=== PATIENT | female | born 2000 | race Asian ===

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

== ENCOUNTER 2021-01-20 22:37 | Outpatient (CLI) | payer BC, OTHER ==
[2021-01-20 23:37] VITALS: BP 135/71; PULSE 85; RESP 16; TEMP 97.1
--- NOTE | 2021-01-24 07:26 | P.MSEPDOC ---
Presenting Problems - Arrival Data Date of Arrival on Unit: 01/20/21 Time of Arrival on Unit: 22:37 Mode of Transport: Ambulatory - Complaint OB-Reason for Admission/Chief Complaint: Pain Comment: Left and right sided lower abdominal pain. Pt rates pain 4-5 on scale of 0-10 Medical History - Information : 2 Para: 1 Term: 1 : 0 Abortions: Spontaneous or Elective: 0 Number of Living Children: 1 - Gestational Age Gestational Age by LINDA (wks/days): 26 Weeks and 0 Days - History Complications: Prior Review of Systems - Review of Systems Constitutional: No problems Breast: No problems ENT: No problems Cardiovascular: No problems Respiratory: No problems Gastrointestinal: No problems Genitourinary: No problems Musculoskeletal: No problems Neurological: No problems Skin: No problems Vital Signs - Temperature Temperature: 97.1 F Temperature Source: Temporal Artery Scan - Pulse Right Brachial Pulse Rate: 85 Pulse Assessment Method: Automatic Cuff - Respirations Respiratory Rate: 16 Oxygen Delivery Method: Room Air O2 Sat by Pulse Oximetry: 99 - Blood Pressure Right Arm Blood Pressure: 135/71 Blood Pressure Mean: 92 Blood Pressure Source: Automatic Cuff Medical Screen Scoring - Assessment - Baby A Baseline FHR: 145 Physician Notification - Physician Notified Physician Notified Date: 01/20/21 Physician Notified Time: 23:15 Physician: Larisa Nunn New Order Received: Yes - Notification Comment Comment: Dr. Nunn given report on pt c/o. VS WNL. Pt rating pain 4-5 on pain scale. Reactive NST. No contractions noted per monitor. Orders received to d/c pt to home. Maternal Triage Index - Maternal Triage Index Presenting for scheduled procedure w/no complaint: No - Stat/Priority 1 Stat Priority 1: No - Urgent/Priority 2 Urgent Priority 2: No - Prompt/Priority 3 Prompt Priority 3: No - Non-Urgent/Priority 4 Non-Urgent Priority 4: Yes Criteria Met for Priority 4: Left and right sided abdominal pain. Disposition - Disposition OB Disposition: Discharge to home Discharge Date: 01/20/21 Discharge Time: 23:20 I agree with the RN Medical Screening Exam: Yes Case reviewed; plan agreed upon as documented in EMR&OBIX.: Yes Diagnosis: LOW BACK PAIN
== END 2021-01-20 23:20 | disposition home or self-care (01) ==
LOC: FBPOP 22:37
PROVIDERS: ATTEND Obstetrics & Gynecology
DX: O26.892 Other specified pregnancy related conditions, second trimester (principal); Z3A.26 26 weeks gestation of pregnancy
CPT/HCPCS: 59025; 99213

== ENCOUNTER 2021-02-04 14:48 | Outpatient (CLI) | payer BC, OTHER ==
[2021-02-04 15:39] VITALS: BP 124/59; PULSE 89; RESP 18; TEMP 98
--- NOTE | 2021-02-08 07:18 | P.MSEPDOC ---
Presenting Problems - Arrival Data Date of Arrival on Unit: 02/04/21 Time of Arrival on Unit: 14:48 Mode of Transport: Ambulatory - Complaint OB-Reason for Admission/Chief Complaint: Pain Comment: 11/30 cramping and generalized back pain began this morning. Medical History - Information : 2 Para: 1 Term: 0 : 1 Abortions: Spontaneous or Elective: 0 Number of Living Children: 1 - Gestational Age Gestational Age by LINDA (wks/days): 28 Weeks and 1 Days Review of Systems - Review of Systems Constitutional: No problems Breast: No problems ENT: No problems Cardiovascular: No problems Respiratory: No problems Gastrointestinal: No problems Genitourinary: No problems Musculoskeletal: No problems Neurological: No problems Skin: No problems Vital Signs - Temperature Temperature: 98.0 F Temperature Source: Axillary - Pulse Right Pulse Oximetery Pulse Rate: 89 Pulse Assessment Method: Pulse Oximetry - Respirations Respiratory Rate: 18 Oxygen Delivery Method: Room Air O2 Sat by Pulse Oximetry: 98 - Blood Pressure Right Arm Blood Pressure: 124/59 Blood Pressure Mean: 80 Blood Pressure Source: Automatic Cuff Medical Screen Scoring - Assessment - Baby A Baseline FHR: 140 Heart Rate - NICHD Category: Category I (Normal) NST: Reactive Physician Notification - Physician Notified Physician Notified Date: 02/04/21 Physician Notified Time: 15:16 Physician: Larisa Nunn New Order Received: Yes - Notification Comment Comment: d/c with instructions to increase fluids and rest and f/u if sx worsen. Maternal Triage Index - Maternal Triage Index Presenting for scheduled procedure w/no complaint: No - Stat/Priority 1 Stat Priority 1: No - Urgent/Priority 2 Urgent Priority 2: No - Prompt/Priority 3 Prompt Priority 3: No - Non-Urgent/Priority 4 Non-Urgent Priority 4: Yes Criteria Met for Priority 4: cramping and generalized back pain Disposition - Disposition OB Disposition: Discharge to home Discharge Date: 02/04/21 Discharge Time: 15:30 I agree with the RN Medical Screening Exam: Yes Case reviewed; plan agreed upon as documented in EMR&OBIX.: Yes Diagnosis: LOW BACK PAIN
== END 2021-02-04 15:30 | disposition home or self-care (01) ==
LOC: FBPOP 14:48
PROVIDERS: ATTEND Obstetrics & Gynecology
DX: O26.893 Other specified pregnancy related conditions, third trimester (principal); M54.9 Dorsalgia, unspecified; Z3A.28 28 weeks gestation of pregnancy
CPT/HCPCS: 59025; 99213

== ENCOUNTER 2021-02-21 22:14 | Outpatient (CLI) | payer BC, OTHER ==
[2021-02-21 23:13] LABS: Amorphous Sediment,Urine Rare /hpf; Appearance,Urine Cloudy (Clear); Bilirubin,Urine Negative (Negative); Blood,Urine Negative (Negative); Color,Urine Yellow; Glucose,Urine (UA) Negative (Negative); Ketones,Urine Negative (Negative); Leukocyte Esterase,Urine Negative (Negative); Mucus,Urine Rare /hpf; Nitrite,Urine Negative (Negative); Protein,Urine Trace (Negative); RBC,Urine <1 /hpf (0-5); Specific Gravity,Urine 1.024 (1.001-1.035); Squamous Epithelial Cell,Urine 3 /hpf (0-4); WBC,Urine 1 /hpf (0-5)
[2021-02-21 23:47] LABS: Basophils % (A) 0 %; Eosinophils # (A) 0.1 k/uL (0-0.7); Eosinophils % (A) 0 %; HCT 33.5 % (34.0-46.0); HGB 11.1 gm/dL (11.4-16.0); Lymphocytes # (A) 2.3 k/uL (1.0-4.8); Lymphocytes % (A) 20 %; MCH 26.8 pg (25.0-35.0); MCHC 33.1 g/dL (31.0-37.0); MCV 80.8 fL (80.0-100.0); Mean Platelet Volume 10.8; Monocytes # (A) 0.6 k/uL (0-1.0); Monocytes % (A) 5 %; Neutrophils # (A) 8.5 k/uL (1.3-7.7); Neutrophils % (A) 72 %; Platelet Count 233 k/uL (150-450); Poikilocytosis Slight; RBC 4.14 m/uL (3.80-5.40); RDW 13.7 % (11.5-15.5); WBC 11.8 k/uL (4.0-11.0)
[2021-02-22 00:08] LABS: ALT 12 U/L (4-34); AST 18 U/L (14-36); African American GFR (CKD) >90 (>60 ml/min/1.73 sqM); Blood Urea Nitrogen 9 mg/dL (7-17); LDH 385 U/L (313-618); Non-African American GFR(CKD) >90 (>60 ml/min/1.73 sqM); Uric Acid 3.3 mg/dL (3.7-7.4)
[2021-02-22 00:23] LABS: Creatinine,Urine Random 128.1 mg/dL; Protein/Creatinine Ratio,Urine 0.039
[2021-02-22 01:00] VITALS: BP 144/67; PULSE 92; RESP 18; TEMP 98.3
--- NOTE | 2021-02-22 06:23 | P.MSEPDOC ---
Presenting Problems - Arrival Data Date of Arrival on Unit: 02/22/21 Time of Arrival on Unit: 22:14 Mode of Transport: Wheelchair - Complaint OB-Reason for Admission/Chief Complaint: Pain Comment: pt presents to triage with abd pain on right and left side and back. states pain is 8 out of 10. Medical History - Information : 2 Para: 1 Term: 0 : 1 Abortions: Spontaneous or Elective: 0 Number of Living Children: 1 - Gestational Age Gestational Age by LINDA (wks/days): 30 Weeks and 5 Days Review of Systems - Review of Systems Constitutional: No problems Breast: No problems ENT: No problems Cardiovascular: No problems Respiratory: No problems Gastrointestinal: No problems Genitourinary: No problems Musculoskeletal: No problems Neurological: No problems Skin: No problems Vital Signs - Temperature Temperature: 98.3 F Temperature Source: Oral - Pulse Pulse Oximetery Pulse Rate: 92 Pulse Assessment Method: Pulse Oximetry - Respirations Respiratory Rate: 18 Oxygen Delivery Method: Room Air O2 Sat by Pulse Oximetry: 98 - Blood Pressure Right Arm Blood Pressure: 144/67 Blood Pressure Mean: 92 Blood Pressure Source: Automatic Cuff Medical Screen Scoring - Cervical Exam Dilation (cm): 0 Station: -2 Membranes: Intact - Assessment - Baby A Baseline FHR: 145 Heart Rate - NICHD Category: Category I (Normal) NST: Reactive Physician Notification - Physician Notified Physician Notified Date: 02/22/21 Physician Notified Time: 22:46 Physician: Javier Mueller Order Received: Yes Maternal Triage Index - Maternal Triage Index Presenting for scheduled procedure w/no complaint: No - Stat/Priority 1 Stat Priority 1: No - Urgent/Priority 2 Urgent Priority 2: No - Prompt/Priority 3 Prompt Priority 3: No - Non-Urgent/Priority 4 Non-Urgent Priority 4: Yes Criteria Met for Priority 4: patient presents with abd pain. RN notes high BP on admission and pt has history of preclampsia in first . ordered [facility] labs and urine to be sent. Disposition - Disposition OB Disposition: Discharge to home Discharge Date: 02/22/21 Discharge Time: 00:35 I agree with the RN Medical Screening Exam: Yes Case reviewed; plan agreed upon as documented in EMR&OBIX.: Yes Diagnosis: PAIN, UNSPECIFIED (Patient presented to labor and delivery with complaints of chronic pelvic pain. Reviewing patient's history it appears this is been going on for approximately 1 month. Cervix is closed and she's having no regular contractions. heart tones are reassuring. Patient did have some mild systolic blood pressure elevations the 140s and history of severe preeclampsia. For this reason, I did send preeclampsia blood work which was negative. We've asked the patient to return to the office in 2 days for a blood pressure check and follow-up with Dr. Nunn.)
== END 2021-02-22 00:35 | disposition home or self-care (01) ==
LOC: FBPOP 22:14
PROVIDERS: ATTEND Obstetrics & Gynecology
DX: O26.893 Other specified pregnancy related conditions, third trimester (principal); Z3A.30 30 weeks gestation of pregnancy
CPT/HCPCS: 59025; 81001; 82565; 82570; 83615; 84156; 84450; 84460; 84520; 84550; 85025; 99213

== ENCOUNTER 2021-03-12 13:50 | Outpatient (CLI) | payer OTHER ==
[2021-03-12 14:52] LABS: Appearance,Urine Cloudy (Clear); Bacteria,Urine Rare /hpf; Bilirubin,Urine Negative (Negative); Blood,Urine Negative (Negative); Color,Urine Yellow; Glucose,Urine (UA) Negative (Negative); Ketones,Urine Negative (Negative); Leukocyte Esterase,Urine Trace (Negative); Mucus,Urine Few /hpf; Nitrite,Urine Negative (Negative); Protein,Urine Trace (Negative); RBC,Urine 1 /hpf (0-5); Specific Gravity,Urine 1.026 (1.001-1.035); Squamous Epithelial Cell,Urine 10 /hpf (0-4); WBC,Urine 2 /hpf (0-5)
[2021-03-12 14:54] VITALS: BP 120/60; PULSE 69; RESP 16; TEMP 97.5
--- NOTE | 2021-04-07 07:13 | P.MSEPDOC ---
Presenting Problems - Arrival Data Date of Arrival on Unit: 03/12/21 Time of Arrival on Unit: 13:50 Mode of Transport: Ambulatory - Complaint OB-Reason for Admission/Chief Complaint: Pain Comment: lower abdominal pain Medical History - Information : 2 Para: 1 Term: 0 : 1 Abortions: Spontaneous or Elective: 0 Number of Living Children: 1 - Gestational Age Gestational Age by LINDA (wks/days): 33 Weeks and 2 Days - History Complications: Prior , Prior Comment: history of preeclampsia last Review of Systems - Review of Systems Constitutional: No problems Breast: No problems ENT: No problems Cardiovascular: No problems Respiratory: No problems Gastrointestinal: No problems Genitourinary: No problems Musculoskeletal: No problems Neurological: No problems Skin: No problems Vital Signs - Temperature Temperature: 97.5 F Temperature Source: Temporal Artery Scan - Pulse Right Sitting Pulse Rate: 69 Pulse Assessment Method: Automatic Cuff - Respirations Respiratory Rate: 16 Oxygen Delivery Method: Room Air O2 Sat by Pulse Oximetry: 99 - Blood Pressure Right Arm Sitting Blood Pressure: 120/60 Blood Pressure Mean: 80 Blood Pressure Source: Automatic Cuff Medical Screen Scoring - Uterine Contractions Frequency From (mins): 0 Frequency To (mins): 0 - Assessment - Baby A Baseline FHR: 135 Heart Rate - NICHD Category: Category I (Normal) NST: Reactive Physician Notification - Physician Notified Physician Notified Date: 03/12/21 Physician Notified Time: 15:00 Physician: Larisa Nunn Maternal Triage Index - Maternal Triage Index Presenting for scheduled procedure w/no complaint: No - Stat/Priority 1 Stat Priority 1: No - Urgent/Priority 2 Urgent Priority 2: No - Prompt/Priority 3 Prompt Priority 3: No - Non-Urgent/Priority 4 Non-Urgent Priority 4: Yes Criteria Met for Priority 4: ligament pain Disposition - Disposition OB Disposition: Triage, Discharge to home Discharge Date: 03/12/21 Discharge Time: 15:05 I agree with the RN Medical Screening Exam: Yes Case reviewed; plan agreed upon as documented in EMR&OBIX.: Yes Diagnosis: FALSE LABOR BEFORE 37 COMPLETED WEEKS OF GEST, THIRD TRI
== END 2021-03-12 15:05 | disposition home or self-care (01) ==
LOC: FBPOP 13:50
PROVIDERS: ATTEND Obstetrics & Gynecology
DX: O47.03 False labor before 37 completed weeks of gestation, third trimester (principal); Z3A.33 33 weeks gestation of pregnancy
CPT/HCPCS: 59025; 81001; G0463; 99213

== ENCOUNTER 2021-04-02 00:41 | Outpatient (CLI) | payer OTHER, BC ==
[2021-04-02 02:35] VITALS: BP 133/60; PULSE 83; RESP 16; TEMP 97.9
--- NOTE | 2021-04-02 09:40 | P.MSEPDOC ---
Presenting Problems - Arrival Data Date of Arrival on Unit: 04/02/21 Time of Arrival on Unit: 00:41 Mode of Transport: Wheelchair - Complaint OB-Reason for Admission/Chief Complaint: Pain Comment: back pain and upper leg pain Medical History - Information : 2 Para: 1 Term: 1 : 0 Abortions: Spontaneous or Elective: 0 Number of Living Children: 1 - Gestational Age Gestational Age by LINDA (wks/days): 36 Weeks and 2 Days - History Complications: Prior Review of Systems - Review of Systems Constitutional: No problems Breast: No problems ENT: No problems Cardiovascular: No problems Respiratory: No problems Gastrointestinal: No problems Genitourinary: No problems Musculoskeletal: No problems Neurological: No problems Skin: No problems Vital Signs - Temperature Temperature: 97.9 F Temperature Source: Temporal Artery Scan - Pulse Brachial Pulse Rate: 83 Pulse Assessment Method: Automatic Cuff - Respirations Respiratory Rate: 16 Oxygen Delivery Method: Room Air O2 Sat by Pulse Oximetry: 97 - Blood Pressure Right Arm Supine Blood Pressure: 133/60 Blood Pressure Mean: 84 Blood Pressure Source: Automatic Cuff Medical Screen Scoring - Cervical Exam Dilation (cm): 0.5 Effacement (%): 0 Station: -4 Membranes: Intact - Uterine Contractions Frequency From (mins): 30 Frequency To (mins): 30 Duration From (seconds): 20 Duration To (seconds): 50 Intensity: Mild Resting: Soft to palpation - Assessment - Baby A Baseline FHR: 135 Heart Rate - NICHD Category: Category I (Normal) NST: Reactive Physician Notification - Physician Notified Physician Notified Date: 04/02/21 Physician Notified Time: 01:58 Physician: Oscar Macias Order Received: Yes - Notification Comment Comment: discharge to home Maternal Triage Index - Maternal Triage Index Presenting for scheduled procedure w/no complaint: No - Stat/Priority 1 Stat Priority 1: No - Urgent/Priority 2 Urgent Priority 2: No - Prompt/Priority 3 Prompt Priority 3: No - Non-Urgent/Priority 4 Non-Urgent Priority 4: Yes Criteria Met for Priority 4: common discomfort of Disposition - Disposition OB Disposition: Discharge to home Discharge Date: 04/02/21 Discharge Time: 02:10 I agree with the RN Medical Screening Exam: Yes Case reviewed; plan agreed upon as documented in EMR&OBIX.: Yes Diagnosis: FALSE LABOR BEFORE 37 COMPLETED WEEKS OF GEST, THIRD TRI
== END 2021-04-02 02:00 | disposition home or self-care (01) ==
LOC: FBPOP 00:41
PROVIDERS: ATTEND Obstetrics & Gynecology
DX: O47.03 False labor before 37 completed weeks of gestation, third trimester (principal); Z3A.36 36 weeks gestation of pregnancy
CPT/HCPCS: 59025; G0463; 99213

== ENCOUNTER 2021-04-11 12:28 | Outpatient (CLI) | payer OTHER ==
[2021-04-11 12:47] LABS: Basophils % (A) 0 %; Eosinophils # (A) 0.1 k/uL (0-0.7); Eosinophils % (A) 1 %; HCT 32.3 % (34.0-46.0); HGB 10.2 gm/dL (11.4-16.0); Hypochromasia Moderate; Lymphocytes # (A) 2.2 k/uL (1.0-4.8); Lymphocytes % (A) 25 %; MCH 24.2 pg (25.0-35.0); MCHC 31.6 g/dL (31.0-37.0); MCV 76.7 fL (80.0-100.0); Mean Platelet Volume 10.9; Microcytosis Slight; Monocytes # (A) 0.5 k/uL (0-1.0); Monocytes % (A) 6 %; Neutrophils # (A) 5.7 k/uL (1.3-7.7); Neutrophils % (A) 66 %; Platelet Count 279 k/uL (150-450); Poikilocytosis Slight; RBC 4.21 m/uL (3.80-5.40); RDW 14.7 % (11.5-15.5); WBC 8.7 k/uL (4.0-11.0)
[2021-04-11 12:56] LABS: ALT 13 U/L (4-34); AST 19 U/L (14-36); African American GFR (CKD) >90 (>60 ml/min/1.73 sqM); Blood Urea Nitrogen 12 mg/dL (7-17); LDH 400 U/L (313-618); Magnesium 1.6 mg/dL (1.6-2.3); Non-African American GFR(CKD) >90 (>60 ml/min/1.73 sqM); Uric Acid 3.8 mg/dL (3.7-7.4)
[2021-04-11 12:58] LABS: INR 0.8 (<1.2); Partial Thromboplastin Time 22.7 sec (22.0-30.0); Prothrombin Time 9.3 sec (9.0-12.0)
[2021-04-11 13:06] LABS: Appearance,Urine Cloudy (Clear); Bacteria,Urine Rare /hpf; Bilirubin,Urine Negative (Negative); Blood,Urine Negative (Negative); Color,Urine Yellow; Glucose,Urine (UA) Negative (Negative); Hyaline Casts,Urine 1 /lpf (0-2); Ketones,Urine Negative (Negative); Leukocyte Esterase,Urine Small (Negative); Mucus,Urine Occasional /hpf; Nitrite,Urine Negative (Negative); Protein,Urine 1+ (Negative); RBC,Urine 1 /hpf (0-5); Specific Gravity,Urine 1.028 (1.001-1.035); Squamous Epithelial Cell,Urine 6 /hpf (0-4); WBC,Urine 3 /hpf (0-5)
[2021-04-11 13:19] LABS: Creatinine,Urine Random 130.7 mg/dL; Protein/Creatinine Ratio,Urine 0.184
[2021-04-11 13:45] VITALS: BP 125/80; PULSE 85; RESP 16; TEMP 97.5
== END 2021-04-11 13:35 | disposition home or self-care (01) ==
LOC: FBPOP 12:28
PROVIDERS: ATTEND Obstetrics & Gynecology
DX: Z36.83 Encounter for fetal screening for congenital cardiac abnormalities (principal); O13.9 Gestational [pregnancy-induced] hypertension without significant proteinuria, unspecified trimester; Z3A.00 Weeks of gestation of pregnancy not specified
CPT/HCPCS: 59025; 82570; 84156; 82565; 83615; 83735; 84450; 84460; 84520; 84550; 85025; 85384; 85610; 85730; 81001; G0463; 99215

== ENCOUNTER 2021-04-11 21:26 | Outpatient (CLI) | payer OTHER ==
[2021-04-11 23:07] VITALS: BP 128/79; PULSE 83; RESP 16; TEMP 96.6
--- NOTE | 2021-04-20 07:57 | P.MSEPDOC ---
Presenting Problems - Arrival Data Date of Arrival on Unit: 04/11/21 Time of Arrival on Unit: 21:26 Mode of Transport: Ambulatory - Complaint OB-Reason for Admission/Chief Complaint: Possible Onset of Labor, Rule Out SROM, Acute Nausea/Vomiting Comment: Patient reports to vinicius stating she has been bobby, her water broke, and she has one emesis. Medical History - Information : 2 Para: 1 Term: 0 : 1 Abortions: Spontaneous or Elective: 0 Number of Living Children: 1 - Gestational Age Gestational Age by LINDA (wks/days): 37 Weeks and 4 Days Review of Systems - Review of Systems Constitutional: No problems Breast: No problems ENT: No problems Cardiovascular: No problems Respiratory: No problems Gastrointestinal: No problems Genitourinary: No problems Musculoskeletal: No problems Neurological: No problems Skin: No problems Vital Signs - Temperature Temperature: 96.6 F Temperature Source: Temporal Artery Scan - Pulse Left Brachial Pulse Rate: 83 Pulse Assessment Method: Automatic Cuff - Respirations Respiratory Rate: 16 Oxygen Delivery Method: Room Air - Blood Pressure Right Arm Blood Pressure: 128/79 Blood Pressure Mean: 95 Blood Pressure Source: Automatic Cuff Medical Screen Scoring - Cervical Exam Dilation (cm): 1 Effacement (%): 60 Station: -2 Membranes: Intact - Uterine Contractions Frequency From (mins): 3 Frequency To (mins): 10 Duration From (seconds): 50 Duration To (seconds): 80 Intensity: Mild Resting: Soft to palpation - Assessment - Baby A Baseline FHR: 140 Heart Rate - NICHD Category: Category I (Normal) NST: Reactive Physician Notification - Physician Notified Physician Notified Date: 04/11/21 Physician Notified Time: 22:48 Physician: Oscar Macias Order Received: Yes - Notification Comment Comment: Dr. Macias called with report of reactive nst, negative amnsiure, repeat blood. pressures and seen earlier for PIH workup, and cervical exam of / that is. unchanged after 1 hour. Patient to be discharged. Maternal Triage Index - Maternal Triage Index Presenting for scheduled procedure w/no complaint: No - Stat/Priority 1 Stat Priority 1: No - Urgent/Priority 2 Urgent Priority 2: No - Prompt/Priority 3 Prompt Priority 3: No - Non-Urgent/Priority 4 Non-Urgent Priority 4: Yes Criteria Met for Priority 4: Patient reports to vinicius stating she has been bobby, her water broke, and she has one emesis. Disposition - Disposition OB Disposition: Discharge to home Discharge Date: 04/11/21 Discharge Time: 23:00 I agree with the RN Medical Screening Exam: Yes Case reviewed; plan agreed upon as documented in EMR&OBIX.: Yes Diagnosis: FALSE LABOR AT OR AFTER 37 COMPLETED WEEKS OF GESTATION
== END 2021-04-11 23:00 | disposition home or self-care (01) ==
LOC: FBPOP 21:26
PROVIDERS: ATTEND Obstetrics & Gynecology
DX: O47.1 False labor at or after 37 completed weeks of gestation (principal); Z3A.37 37 weeks gestation of pregnancy
CPT/HCPCS: 59025; G0463; 99213

== ENCOUNTER 2021-04-13 11:31 | Outpatient (CLI) | payer OTHER, BC ==
[2021-04-13 13:44] VITALS: BP 121/69; PULSE 79; RESP 16; TEMP 97.3
--- NOTE | 2021-04-13 18:17 | P.MSEPDOC ---
Presenting Problems - Arrival Data Date of Arrival on Unit: 04/13/21 Time of Arrival on Unit: 11:31 Mode of Transport: Ambulatory - Complaint OB-Reason for Admission/Chief Complaint: Rule Out PROM Comment: Pt states loss of mucus plug, pressure and headache that started on the way to the hospital Medical History - Information : 2 Para: 1 Term: 0 : 1 Abortions: Spontaneous or Elective: 0 Number of Living Children: 1 - Gestational Age Gestational Age by LINDA (wks/days): 37 Weeks and 6 Days - History Complications: Prior Review of Systems - Review of Systems Constitutional: No problems Breast: No problems ENT: No problems Cardiovascular: No problems Respiratory: No problems Gastrointestinal: No problems Genitourinary: No problems Musculoskeletal: No problems Neurological: No problems Skin: No problems Vital Signs - Temperature Temperature: 97.3 F Temperature Source: Temporal Artery Scan - Pulse Right Brachial Pulse Rate: 79 Pulse Assessment Method: Automatic Cuff - Respirations Respiratory Rate: 16 Oxygen Delivery Method: Room Air O2 Sat by Pulse Oximetry: 99 - Blood Pressure Right Arm Sitting Blood Pressure: 121/69 Blood Pressure Mean: 86 Blood Pressure Source: Automatic Cuff Medical Screen Scoring - Cervical Exam Dilation (cm): 1 Effacement (%): 60 Station: -2 Membranes: Intact - Assessment - Baby A Baseline FHR: 140 Heart Rate - NICHD Category: Category II (Indeterminate) NST: Reactive Physician Notification - Physician Notified Physician Notified Date: 04/13/21 Physician Notified Time: 13:20 Physician: Maye Euceda New Order Received: Yes - Notification Comment Comment: Spk c\Dr. Euceda, advma pt of Dr Collins to triage c/o loss of mucus plug and. pressure. Pt reports SHAW that started on drive to the hospital, hx of preeclampsia. c\first . SVE /-2, no change after 1 hr, amnisure negative. Physical asst. negative for PIH other than self reported SHAW. Reviewed serial BPs and PIH work up on. Sunday. States to advise pt to rest and take tylenol if needed. Follow up as scheduled. c\Dr. Nunn. Maternal Triage Index - Urgent/Priority 2 Urgent Priority 2: Yes Provider Notified: Maye Euceda Provider Notified Time: 13:20 Criteria Met for Priority 2: R/O SROM, pressure and headache Disposition - Disposition OB Disposition: Discharge to home, Written follow up instructions reviewed Discharge Date: 04/13/21 Discharge Time: 13:40 I agree with the RN Medical Screening Exam: Yes Case reviewed; plan agreed upon as documented in EMR&OBIX.: Yes Diagnosis: FALSE LABOR AT OR AFTER 37 COMPLETED WEEKS OF GESTATION Additional Diagnoses: Headache
== END 2021-04-13 13:40 | disposition home or self-care (01) ==
LOC: FBPOP 11:31
PROVIDERS: ATTEND Obstetrics & Gynecology
DX: O47.1 False labor at or after 37 completed weeks of gestation (principal); Z3A.37 37 weeks gestation of pregnancy
CPT/HCPCS: 59025; 84112; G0463; 99213

== ENCOUNTER 2021-04-21 00:26 | Outpatient (CLI) | payer OTHER ==
[2021-04-21 00:52] VITALS: BP 134/70; PULSE 88; RESP 16; TEMP 97.9
--- NOTE | 2021-04-21 03:43 | P.MSEPDOC ---
Presenting Problems - Arrival Data Date of Arrival on Unit: 04/21/21 Time of Arrival on Unit: 00:26 Mode of Transport: Ambulatory - Complaint OB-Reason for Admission/Chief Complaint: Possible Onset of Labor Comment: Pt presents to triage with c/o contx that started around 2300. Pt states contx are approx 2-5 min apart and rates pain 10/10 Medical History - Information : 2 Para: 1 Term: 0 : 1 Abortions: Spontaneous or Elective: 0 Number of Living Children: 1 - Gestational Age Gestational Age by LINDA (wks/days): 39 Weeks and 0 Days - History Complications: Prior Comment: Pt reports hx of preeclampsia with last Review of Systems - Review of Systems Constitutional: No problems Breast: No problems ENT: No problems Cardiovascular: No problems Respiratory: No problems Gastrointestinal: No problems Genitourinary: No problems Musculoskeletal: No problems Neurological: No problems Skin: No problems Vital Signs - Temperature Temperature: 97.9 F Temperature Source: Oral - Pulse Right Brachial Pulse Rate: 88 Pulse Assessment Method: Automatic Cuff - Respirations Respiratory Rate: 16 Oxygen Delivery Method: Room Air O2 Sat by Pulse Oximetry: 96 - Blood Pressure Right Arm Blood Pressure: 134/70 Blood Pressure Mean: 91 Blood Pressure Source: Automatic Cuff Medical Screen Scoring - Cervical Exam Dilation (cm): 2 Effacement (%): 70 Station: -2 Membranes: Intact - Uterine Contractions Frequency From (mins): 2 Frequency To (mins): 15 Duration From (seconds): 20 Duration To (seconds): 110 Intensity: Mild Resting: Soft to palpation - Assessment - Baby A Baseline FHR: 140 Heart Rate - NICHD Category: Category I (Normal) NST: Reactive Physician Notification - Physician Notified Physician Notified Date: 04/21/21 Physician Notified Time: 01:56 Physician: Javier Mueller New Order Received: Yes - Notification Comment Comment: Dr. Mueller called re: pt c/o contx that started around 2300, pain 10/10,. repeat c/s scheduled 04/26, hx of 36 week c/s related to preeclampsia with first baby, vitals WNL, no preeclamptic s/sx, FHR, contx pattern, and SVE. Orders received to d/c pt home. Pt advised to come back to triage if contx get stronger per Dr. Mueller Maternal Triage Index - Maternal Triage Index Presenting for scheduled procedure w/no complaint: No - Stat/Priority 1 Stat Priority 1: No - Urgent/Priority 2 Urgent Priority 2: No - Prompt/Priority 3 Prompt Priority 3: No - Non-Urgent/Priority 4 Non-Urgent Priority 4: Yes Criteria Met for Priority 4: >37 weeks early labor signs Disposition - Disposition OB Disposition: Discharge to home Discharge Date: 04/21/21 Discharge Time: 02:10 I agree with the RN Medical Screening Exam: Yes Case reviewed; plan agreed upon as documented in EMR&OBIX.: Yes Diagnosis: FALSE LABOR AT OR AFTER 37 COMPLETED WEEKS OF GESTATION (Patient presented to labor and delivery with complaints of contractions. Patient's had a previous section.At 36 weeks secondary to severe preeclampsia. Patient has had normal blood pressure and no evidence of preeclampsia at this time. Prolonged monitoring shows category 1 heart tones and fairly inconsistent contractions and it is evident patient is not in labor. Patient instructed to return if she felt contractions were more regular and stronger or if she had any other concerns including but not limited to decreased movement, vaginal bleeding, and/or leaking of fluid.)
== END 2021-04-21 02:10 | disposition home or self-care (01) ==
LOC: FBPOP 00:26
PROVIDERS: ATTEND Obstetrics & Gynecology
DX: O47.1 False labor at or after 37 completed weeks of gestation (principal); Z3A.39 39 weeks gestation of pregnancy
CPT/HCPCS: 59025; G0463; 99213

== ENCOUNTER 2021-04-23 04:35 | Outpatient (CLI) | payer OTHER ==
[2021-04-23 06:12] VITALS: PULSE 87; RESP 16; TEMP 97.7
[2021-04-26 07:37] VITALS: BP 130/80
--- NOTE | 2021-04-26 07:37 | P.MSEPDOC ---
Presenting Problems - Arrival Data Date of Arrival on Unit: 04/23/21 Time of Arrival on Unit: 04:35 Mode of Transport: Wheelchair - Complaint OB-Reason for Admission/Chief Complaint: Possible Onset of Labor Comment: Pt comes in c/o contractions that became strong 10 around 0420. Pt is a repeat. section sced for Sunday Medical History - Information : 2 Para: 1 Term: 0 : 1 Abortions: Spontaneous or Elective: 0 Number of Living Children: 1 - Gestational Age Gestational Age by LINDA (wks/days): 39 Weeks and 2 Days - History Complications: Prior Review of Systems - Review of Systems Constitutional: No problems Breast: No problems ENT: No problems Cardiovascular: No problems Respiratory: No problems Gastrointestinal: No problems Genitourinary: No problems Musculoskeletal: No problems Neurological: No problems Skin: No problems Vital Signs - Temperature Temperature: 97.7 F Temperature Source: Temporal Artery Scan - Pulse Right Brachial Pulse Rate: 87 Pulse Assessment Method: Automatic Cuff - Respirations Respiratory Rate: 16 Oxygen Delivery Method: Room Air O2 Sat by Pulse Oximetry: 95 - Blood Pressure Right Arm Blood Pressure: 130/80 Blood Pressure Mean: 96 Blood Pressure Source: Automatic Cuff - Comment Vital Signs Comment: Repeat 134/77 Medical Screen Scoring - Cervical Exam Dilation (cm): 1.5 Effacement (%): 70 Station: -2 Membranes: Ruptured - Uterine Contractions Frequency From (mins): 2 Frequency To (mins): 5 Duration From (seconds): 40 Duration To (seconds): 60 Intensity: Moderate Resting: Soft to palpation - Assessment - Baby A Baseline FHR: 145 Heart Rate - NICHD Category: Category I (Normal) Physician Notification - Physician Notified Physician Notified Date: 04/23/21 Physician Notified Time: 04:52 Physician: Larisa Nunn New Order Received: Yes - Notification Comment Comment: Recheck cervix in one hour. At one hour, cervix remains unchanged, pt contractions spaced out. D/c home and return as planned for repeat c/s on 04/26/20 Maternal Triage Index - Maternal Triage Index Presenting for scheduled procedure w/no complaint: No - Stat/Priority 1 Stat Priority 1: No - Urgent/Priority 2 Urgent Priority 2: Yes Provider Notified: Larisa Nunn Provider Notified Time: 04:52 Criteria Met for Priority 2: 134/77 - Prompt/Priority 3 Prompt Priority 3: Yes - Non-Urgent/Priority 4 Non-Urgent Priority 4: Yes Disposition - Disposition OB Disposition: Discharge to home, Written follow up instructions reviewed Discharge Date: 04/23/21 Discharge Time: 05:56 I agree with the RN Medical Screening Exam: Yes Case reviewed; plan agreed upon as documented in EMR&OBIX.: Yes Diagnosis: PRIMARY INADEQUATE CONTRACTIONS
== END 2021-04-23 06:00 | disposition home or self-care (01) ==
LOC: FBPOP 04:35
PROVIDERS: ATTEND Obstetrics & Gynecology
DX: O62.0 Primary inadequate contractions (principal); Z3A.39 39 weeks gestation of pregnancy
CPT/HCPCS: 59025; G0463; 99213

== ENCOUNTER 2021-04-23 14:58 | Inpatient (IN) | payer OTHER ==
[2021-04-23] MEDS ORDERED: CITRIC ACID-SODIUM CITRATE 15 ML CUP PO ONE (15:29)
[2021-04-23] MEDS ORDERED: LACTATED RINGERS 1,000 ML IV ONE (15:52)
[2021-04-23 16:01] LABS: Basophils % (A) 0 %; Eosinophils % (A) 0 %; HCT 34.8 % (34.0-46.0); HGB 10.6 gm/dL (11.4-16.0); Hypochromasia Marked; Lymphocytes % (A) 6 %; MCH 23.3 pg (25.0-35.0); MCHC 30.5 g/dL (31.0-37.0); MCV 76.4 fL (80.0-100.0); Mean Platelet Volume 10.5; Microcytosis Slight; Monocytes # (A) 0.4 k/uL (0-1.0); Monocytes % (A) 2 %; Neutrophils % (A) 91 %; Platelet Count 311 k/uL (150-450); Poikilocytosis Slight; RBC 4.55 m/uL (3.80-5.40); RDW 15.6 % (11.5-15.5); WBC 16.5 k/uL (4.0-11.0)
[2021-04-23] MEDS ORDERED: KETOROLAC 15 MG/ML 1 ML VIAL ONE (16:12)
[2021-04-23] MEDS ORDERED: MORPHINE SULFATE (PF) 0.3 MG/0.3 ML SYR ONE (16:12)
[2021-04-23] MEDS ORDERED: NALBUPHINE 10 MG/ML (1 ML AMP) ONE (16:12)
[2021-04-23] MEDS ORDERED: ONDANSETRON 4 MG/2 ML VIAL ONE (16:12)
--- NOTE | 2021-04-23 16:53 | P.HPOB ---
History of Present Illness H&P Date: 04/23/21 Chief Complaint: labor, previous 21-year-old presents at 39 weeks and 2 days in active labor. Her cervix changed from 1 cm dilated earlier today to 3 cm dilated, 70% effaced, -2 station. She is bobby every 2 minutes. heart tones are 140 with mo derate variability and reactive. She had a with her last and was planning to have a repeat . Review of Systems All systems: negative Constitutional: Denies chills, Denies fever Eyes: denies blurred vision, denies pain Ears, nose, mouth and throat: Denies headache, Denies sore throat Cardiovascular: Denies chest pain, Denies shortness of breath Respiratory: Denies cough Gastrointestinal: Denies abdominal pain, Denies diarrhea, Denies nausea, Denies vomiting Genitourinary: Denies dysuria, Denies hematuria Musculoskeletal: Denies myalgias Integumentary: Denies pruritus, Denies rash Neurological: Denies numbness, Denies weakness Psychiatric: Denies anxiety, Denies depression Endocrine: Denies fatigue, Denies weight change Past Medical History Past Medical History: No Reported History History of Any Multi-Drug Resistant Organisms: None Reported Past Surgical History: Adenoidectomy, Tonsillectomy Past Anesthesia/Blood Transfusion Reactions: No Reported Reaction Smoking Status: Never smoker Medications and Allergies Home Medications Medication Instructions Recorded Confirmed Type No Known Home Medications 04/23/21 04/23/21 History Allergies Allergy/AdvReac Type Severity Reaction Status Date / Time No Known Allergies Allergy Verified 04/23/21 15:03 Exam Osteopathic Statement: *. No significant issues noted on an osteopathic structural exam other than those noted in the History and Physical/Consult. Intake and Output 04/23/21 04/23/21 04/23/21 06:59 14:59 22:59 Other: Weight 73.936 kg Heart: Regular rate and rhythm Lungs: Clear to auscultation bilaterally Abdomen: Soft, nontender Extremities: Negative Homans sign Results Result Diagrams: 04/23/21 15:40 Abnormal Lab Results - Last 24 Hours (Table) 04/23/21 Range/Units 15:40 WBC 16.5 H (4.0-11.0) k/uL Hgb 10.6 L (11.4-16.0) gm/dL MCV 76.4 L (80.0-100.0) fL MCH 23.3 L (25.0-35.0) pg MCHC 30.5 L (31.0-37.0) g/dL RDW 15.6 H (11.5-15.5) % Neutrophils # 15.0 H (1.3-7.7) k/uL Assessment and Plan (1) Active labor Current Visit: Yes Status: Acute Code(s): SUK9250 - SNOMED Code(s): 740154509 (2) 39 weeks gestation of Current Visit: Yes Status: Acute Code(s): Z3A.39 - 39 WEEKS GESTATION OF SNOMED Code(s): 50765640 (3) Previous section Current Visit: Yes Status: Acute Code(s): Z98.891 - HISTORY OF UTERINE SCAR FROM PREVIOUS SURGERY SNOMED Code(s): 750915562 Plan: 1. Admit to family place 2. Repeat low transverse
--- NOTE | 2021-04-23 16:56 | P.OP ---
Date of Procedure: 04/23/21 Preoperative Diagnosis: 1. at 39 weeks and 2 days 2. Previous section 3. Active labor Postoperative Diagnosis: 1. at 39 weeks and 2 days 2. Previous section 3. Active labor 4. Meconium-stained fluid Procedure(s) Performed: Repeat low transverse Anesthesia: spinal Surgeon: Larisa Nunn Cell Liner #1: Pedrito Rendon Estimated Blood Loss (ml): 223 IV fluids (ml): 1,200 Urine output (ml): 100 Pathology: none sent Condition: stable Disposition: floor Operative Findings: Viable female, Apgars 9, 9, weight 7 lbs. 7 oz. Description of Procedure: Patient was taken to the operating room where spinal anesthesia was found be adequate. She was prepped and draped in normal sterile fashion in dorsal supine position with a leftward tilt. Pfannenstiel skin incision was made the scalpel and carried through to the underlying layer of fascia with the scalpel. Fascia was incised in midline and carried bilaterally with the Tobar scissors. The superior aspect of the fascial incision was grasped with Sangeeta clamps elevated and the underlying rectus muscles dissected off with the Tobar's. Attention was then turned to inferior aspect of same incision which in a similar fashion was grasped tented up and the underlying rectus muscles dissected off with the Tobar's. The rectus muscles were the midline and the peritoneum was id entified tented up and entered sharply with the scalpel. The incision was extended superiorly and inferiorly with good visualization of the bladder. The bladder blade was inserted and the vesicouterine peritoneum was incised the Metzenbaums then carried bilaterally and bladder flap created digitally. A low transverse incision was then made on the uterus with the scalpel. This was carried bilaterally and digital manner. 's head delivered atraumatically, nose and mouth bulb suctioned, cord clamped and cut, handed off to waiting nurses. Apgars 9,9, weight 7 lbs. 7 oz. Placenta delivered manually, intact with three-vessel cord. The uterus is exteriorized and cleared of all clots and debris. The uterine incision was closed with 0 Vicryl in a running locked fashion. Second layer of the same sutures used in imbricating fashion to obtain excellent hemostasis. Both ovaries and tubes appeared normal. The uterus was placed back into the abdomen. The peritoneum was reapproximated using 2-0 Vicryl in a running fashion. The fascia was reapproximated using 0 Vicryl in a running fashion. The subcutaneous tissues closed with 3-0 Vicryl running fashion. The skin was closed matt. Patient tolerated the procedure well, sponge and instrument counts were correct times 2 and she was taken to the recovery room in stable condition.
[2021-04-23] MEDS ORDERED: METOCLOPRAMIDE 5 MG/ML 2 ML VIAL IVP PRN (16:59)
[2021-04-23] MEDS ORDERED: NALOXONE 0.4 MG/ML 1 ML VIAL IV PRN (16:59)
[2021-04-23] MEDS ORDERED: LANOLIN CREAM 5 GM TUBE TOPICAL PRN (16:59)
[2021-04-23] MEDS ORDERED: diphenhydrAMINE 25 MG CAP PO PRN (16:59)
[2021-04-23] MEDS ORDERED: SIMETHICONE 80 MG CHEWABLE PO PRN (16:59)
[2021-04-23] MEDS ORDERED: ZOLPIDEM 5 MG TAB PO PRN (16:59)
[2021-04-23] MEDS ORDERED: diphenhydrAMINE 50 MG CAP PO PRN (16:59)
[2021-04-23] MEDS ORDERED: diphenhydrAMINE 50 MG/ML 1 ML VIAL IVP PRN ×2 (16:59)
[2021-04-23] MEDS ORDERED: ONDANSETRON 4 MG/2 ML VIAL IVP PRN (16:59)
[2021-04-23] MEDS ORDERED: OXYTOCIN 30 UNITS/500 ML NS 30 UNIT in SALINE 1 500ML.BAG IV SCH (17:00)
[2021-04-23] MEDS: ACETAMINOPHEN TAB 500 MG TAB PO SCH (20:52)
[2021-04-23] MEDS: SENNOSIDES-DOCUSATE SODIUM 1 EACH TAB PO SCH (21:35)
[2021-04-24] MEDS: KETOROLAC 30 MG/ML 1 ML VIAL IVP SCH ×4 (01:01→19:16)
[2021-04-24] MEDS ORDERED: LACTATED RINGERS 1,000 ML IV SCH (01:45)
[2021-04-24] MEDS: LACTATED RINGERS 1,000 ML IV SCH ×4 (02:19→19:16)
[2021-04-24] MEDS: ACETAMINOPHEN TAB 500 MG TAB PO SCH ×4 (02:19→19:27)
[2021-04-24 05:02] LABS: Creatinine,Urine Random 311.9 mg/dL; Protein/Creatinine Ratio,Urine 0.115
[2021-04-24 05:43] LABS: Appearance,Urine Cloudy (Clear); Bilirubin,Urine Negative (Negative); Blood,Urine Large (Negative); Color,Urine Dark Brown; Glucose,Urine (UA) Negative (Negative); Ketones,Urine Trace (Negative); Leukocyte Esterase,Urine Large (Negative); Mucus,Urine Many /hpf; Nitrite,Urine Negative (Negative); Protein,Urine 1+ (Negative); RBC,Urine >182 /hpf (0-5); Specific Gravity,Urine 1.029 (1.001-1.035); Squamous Epithelial Cell,Urine 1 /hpf (0-4); WBC,Urine 76 /hpf (0-5)
[2021-04-24 06:17] LABS: ALT 10 U/L (4-34); AST 23 U/L (14-36); African American GFR (CKD) >90 (>60 ml/min/1.73 sqM); Blood Urea Nitrogen 14 mg/dL (7-17); Non-African American GFR(CKD) >90 (>60 ml/min/1.73 sqM); Uric Acid 4.5 mg/dL (3.7-7.4)
[2021-04-24 06:37] LABS: Basophils % (A) 0 %; Eosinophils % (A) 0 %; HCT 28.3 % (34.0-46.0); Hypochromasia Marked; Lymphocytes # (A) 1.1 k/uL (1.0-4.8); Lymphocytes % (A) 10 %; MCH 23.7 pg (25.0-35.0); MCHC 30.5 g/dL (31.0-37.0); MCV 77.6 fL (80.0-100.0); Mean Platelet Volume 10.5; Microcytosis Slight; Monocytes # (A) 0.5 k/uL (0-1.0); Monocytes % (A) 5 %; Neutrophils # (A) 9.1 k/uL (1.3-7.7); Neutrophils % (A) 83 %; Platelet Count 230 k/uL (150-450); RBC 3.65 m/uL (3.80-5.40); RDW 15.8 % (11.5-15.5); WBC 10.9 k/uL (4.0-11.0)
[2021-04-24 06:40] LABS: HGB 8.6 gm/dL (11.4-16.0)
[2021-04-24] MEDS ORDERED: FUROSEMIDE 10 MG/ML 2 ML VIAL IV ONE (06:56)
--- NOTE | 2021-04-24 07:32 | P.PN ---
Progress Note - Text Progress Note Date: 04/24/21 Patient seen and examined at bedside POD 1 s/p repeat with spinal duramorph. Patient reports pain well controlled with duramorph and oral medication. Itching from the morphine is tolerable. Patient able to stand but has not used the restroom because she still has the kenny catheter in place. No signs of motor weakness. Patient denies SHAW, N/V, F/C. Site of spinal is clean and dry without erythema. Will continue to follow.
[2021-04-24] MEDS: SENNOSIDES-DOCUSATE SODIUM 1 EACH TAB PO SCH ×2 (07:54→19:27)
--- NOTE | 2021-04-24 09:57 | P.PNOBGPC ---
Subjective - Subjective Principal diagnosis: S/P RLTCS POD #1 Interval history: Seen and examined. Denies nausea, vomiting, chest pain, shortness of breath or any calf pain. Pain is well-controlled. Maintain the catheter overnight because her output was rather low and her urine was marguerite colored. Did give her a bolus of up to 1000 mL which had very little return. Her output was still not 30 mL an hour to give her 1 dose of Lasix 20 mg and her output has improved dramatically. Patient reports: Reports appetite normal, Reports voiding normally, Reports pain well controlled, Reports ambulating normally : doing well Objective - Vital Signs Latest vital signs: Vital Signs Temp Pulse Resp BP Pulse Ox 04/24/21 07:39 98.3 F 71 16 104/56 98 04/24/21 04:55 98.4 F 71 16 111/63 96 04/24/21 01:00 98.8 F 84 16 114/62 97 04/23/21 20:00 83 14 121/66 97 04/23/21 18:57 97.9 F 72 17 108/61 97 04/23/21 18:27 65 16 114/57 97 04/23/21 17:57 97.0 F L 67 17 108/56 98 04/23/21 17:42 86 17 113/59 97 04/23/21 17:27 68 17 114/55 95 04/23/21 17:12 87 18 103/57 98 04/23/21 16:57 97.2 F L 82 18 104/55 99 04/23/21 16:00 97.2 F L 90 20 142/76 98 04/23/21 15:03 97.2 F L 90 20 142/76 98 Intake and Output 04/23/21 04/24/21 04/24/21 22:59 06:59 14:59 Intake Total 1200 Output Total 200 60 400 Balance 1000 -60 -400 Intake: IV 1200 Output: Urine 200 60 400 Other: Voiding Method Indwelling Catheter Indwelling Catheter Weight 73.936 kg - Exam Lungs: bilateral: normal Chest: Normal S1, Normal S2 Extremities: Present: normal Abdomen: Present: normal appearance, soft. Absent: distention, tenderness Incision: Present: normal, dry, intact Uterus: Present: normal, firm - Labs Labs: Abnormal Lab Results - Last 24 Hours (Table) 04/23/21 04/24/21 04/24/21 Range/Units 15:40 04:40 05:38 WBC 16.5 H (4.0-11.0) k/uL RBC 3.65 L (3.80-5.40) m/uL Hgb 10.6 L 8.6 L D (11.4-16.0) gm/dL Hct 28.3 L (34.0-46.0) % MCV 76.4 L 77.6 L (80.0-100.0) fL MCH 23.3 L 23.7 L (25.0-35.0) pg MCHC 30.5 L 30.5 L (31.0-37.0) g/dL RDW 15.6 H 15.8 H (11.5-15.5) % Neutrophils # 15.0 H 9.1 H (1.3-7.7) k/uL Urine Appearance Cloudy H (Clear) Urine Protein 1+ H (Negative) Urine Ketones Trace H (Negative) Urine Blood Large H (Negative) Ur Leukocyte Esterase Large H (Negative) Urine RBC >182 H (0-5) /hpf Urine WBC 76 H (0-5) /hpf Urine Mucus Many H (None) /hpf Assessment and Plan (1) Active labor Current Visit: Yes Status: Resolved Code(s): QCY4250 - SNOMED Code(s): 604539262 (2) 39 weeks gestation of Current Visit: Yes Status: Resolved Code(s): Z3A.39 - 39 WEEKS GESTATION OF SNOMED Code(s): 65557067 (3) Previous section Current Visit: Yes Status: Resolved Code(s): Z98.891 - HISTORY OF UTERINE SCAR FROM PREVIOUS SURGERY SNOMED Code(s): 834641919 Plan: 1. Continue IV fluids 2. DC Montes catheter but continue to monitor her input and output 3. Regular diet
[2021-04-24] MEDS: IBUPROFEN 600 MG TAB PO SCH (22:53)
[2021-04-25] MEDS: ACETAMINOPHEN TAB 500 MG TAB PO SCH ×2 (03:59→10:26)
[2021-04-25] MEDS: IBUPROFEN 600 MG TAB PO SCH ×2 (04:00→07:30)
--- NOTE | 2021-04-25 07:07 | P.DS ---
Providers Date of admission: 04/23/21 15:28 Expected date of discharge: 04/25/21 Attending physician: Larisa Nunn Primary care physician: Stated None - Discharge Diagnosis(es) (1) Active labor Current Visit: Yes Status: Resolved (2) 39 weeks gestation of Current Visit: Yes Status: Resolved (3) Previous section Current Visit: Yes Status: Resolved Hospital Course: Patient presented in labor and underwent a repeat low transverse . Postoperatively her output was low and to imbricate blurred urine. Still waiting on a urine culture. Her output increased with IV bolus and one dose of Lasix. Patient is ambulating and voiding without difficulty. She is tolerating her diet and passing flatus. Denies nausea, vomiting, chest pain, shortness of breath or any calf pain. She'll be discharged home postoperative day #2 in stable condition to follow-up with me in one week. Plan - Discharge Summary New Discharge Prescriptions: New Ibuprofen [Motrin] 600 mg PO Q6H #30 tab oxyCODONE HCL [OxyIR] 5 mg PO Q4HR PRN #18 tab PRN Reason: Pain Scale 4 - 6 Discharge Medication List Ibuprofen [Motrin] 600 mg PO Q6H #30 tab 04/25/21 [Rx] oxyCODONE HCL [OxyIR] 5 mg PO Q4HR PRN #18 tab 04/25/21 [Rx] Follow up Appointment(s)/Referral(s): Larisa Nunn DO [Doctor of Osteopathic Medicine] - 1 Week Discharge Disposition: HOME SELF-CARE
[2021-04-25 07:31] VITALS: BP 121/74; PULSE 75; RESP 15; TEMP 98
[2021-04-25] MEDS: SENNOSIDES-DOCUSATE SODIUM 1 EACH TAB PO SCH (07:31)
--- NOTE | 2021-04-26 07:41 | P.MSEPDOC ---
Presenting Problems - Arrival Data Date of Arrival on Unit: 04/23/21 Time of Arrival on Unit: 13:32 Mode of Transport: Ambulatory - Complaint OB-Reason for Admission/Chief Complaint: Possible Onset of Labor Comment: pt presents to triage with contractions on a regular basis, pt had previous section Medical History - Information : 2 Para: 1 Term: 1 : 0 Abortions: Spontaneous or Elective: 0 Number of Living Children: 1 - Gestational Age Gestational Age by LINDA (wks/days): 39 Weeks and 2 Days - History Complications: Prior Comment: hx preeclampsia Review of Systems - Review of Systems Constitutional: No problems Breast: No problems ENT: No problems Cardiovascular: No problems Respiratory: No problems Gastrointestinal: No problems Genitourinary: No problems Musculoskeletal: No problems Neurological: No problems Skin: No problems Vital Signs - Temperature Temperature: 98.0 F Temperature Source: Oral - Pulse Right Brachial Pulse Rate: 75 Pulse Assessment Method: Pulse Oximetry - Respirations Respiratory Rate: 15 Oxygen Delivery Method: Room Air O2 Sat by Pulse Oximetry: 98 - Blood Pressure Right Arm Blood Pressure: 121/74 Blood Pressure Mean: 89 Blood Pressure Source: Automatic Cuff Medical Screen Scoring - Cervical Exam Dilation (cm): 3 Effacement (%): 80 Station: -2 Membranes: Intact - Uterine Contractions Frequency From (mins): 2 Frequency To (mins): 3 Duration From (seconds): 40 Duration To (seconds): 70 Intensity: Moderate Resting: Soft to palpation - Assessment - Baby A Baseline FHR: 140 Heart Rate - NICHD Category: Category I (Normal) NST: Reactive Physician Notification - Physician Notified Physician Notified Date: 04/23/21 Physician Notified Time: 15:27 Physician: aLrisa Nunn New Order Received: Yes - Notification Comment Comment: admit for labor as she had cervical change from earlier visit this am, and will perform section Maternal Triage Index - Maternal Triage Index Presenting for scheduled procedure w/no complaint: No - Stat/Priority 1 Stat Priority 1: No - Urgent/Priority 2 Urgent Priority 2: Yes Provider Notified: Larisa Nunn Provider Notified Time: 15:27 Criteria Met for Priority 2: pt is 39 2/7 GA with hx of previous section Disposition - Disposition OB Disposition: Admit Discharge Date: 04/25/21 Discharge Time: 10:30 I agree with the RN Medical Screening Exam: Yes Case reviewed; plan agreed upon as documented in EMR&OBIX.: Yes Diagnosis: ONSET LABOR 37-39 WEEKS, W DEL BY (PLANNED) SECTION
== END 2021-04-25 10:30 | disposition home or self-care (01) | DRG 788 ==
LOC: FBPOP 14:58 → 4FBP 15:28
PROVIDERS: ADMIT Obstetrics & Gynecology; ATTEND Obstetrics & Gynecology
PROC: 4A0HXCZ Measurement of Products of Conception, Cardiac Rate, External Approach (ICD-10-PCS; 2021-04-23)
PROC: 10D00Z1 Extraction of Products of Conception, Low, Open Approach (ICD-10-PCS; principal; 2021-04-23 16:00)
DX: O34.211 Maternal care for low transverse scar from previous cesarean delivery (principal); O77.0 Labor and delivery complicated by meconium in amniotic fluid; Z37.0 Single live birth; Z3A.39 39 weeks gestation of pregnancy; T40.2X5A Adverse effect of other opioids, initial encounter; O99.73 Diseases of the skin and subcutaneous tissue complicating the puerperium; L29.9 Pruritus, unspecified; X58.XXXA Exposure to other specified factors, initial encounter
CPT/HCPCS: 59025; 81001; 82565; 82570; 84156; 84450; 84460; 84520; 84550; 85025; 86850; 86900; 86901; 87086; 99213

== ENCOUNTER 2021-10-23 13:55 | Emergency (ER) | payer OTHER ==
[2021-10-23 14:02] VITALS: BP 127/73; PULSE 87; RESP 16; TEMP 98.6
--- NOTE | 2021-10-23 15:10 | ED ---
General Adult HPI - General Chief complaint: Recheck/Abnormal Lab/Rx Stated complaint: Covid+,Wants testing to confirm Time Seen by Provider: 10/23/21 14:10 Source: patient, RN notes reviewed, old records reviewed Mode of arrival: ambulatory Limitations: no limitations - History of Present Illness Initial comments: 21-year-old female who presents with concern for coronavirus. Patient took a home test and tested positive for coronavirus. She states that she feels totally fine. No cough, no dyspnea. She states she had a fever yesterday which lasted only hours and currently does not feel feverish. She has no abdominal pain no chest pain, no nausea vomiting. - Related Data Previous Rx's Medication Instructions Recorded Ibuprofen [Motrin] 600 mg PO Q6H #30 tab 04/25/21 oxyCODONE HCL [OxyIR] 5 mg PO Q4HR PRN #18 tab 04/25/21 Allergies Allergy/AdvReac Type Severity Reaction Status Date / Time No Known Allergies Allergy Verified 10/23/21 14:03 Review of Systems ROS Statement: Those systems with pertinent positive or pertinent negative responses have been documented in the HPI. ROS Other: All systems not noted in ROS Statement are negative. Past Medical History Past Medical History: No Reported History History of Any Multi-Drug Resistant Organisms: None Reported Past Surgical History: Adenoidectomy, Tonsillectomy Past Anesthesia/Blood Transfusion Reactions: No Reported Reaction Past Psychological History: No Psychological Hx Reported, Anxiety Smoking Status: Never smoker Past Alcohol Use History: None Reported Past Drug Use History: None Reported - Past Family History Mother Family Medical History: No Reported History General Exam Limitations: no limitations General appearance: alert, in no apparent distress Head exam: Present: atraumatic, normocephalic Eye exam: Present: normal appearance, PERRL ENT exam: Present: normal exam Neck exam: Present: normal inspection. Absent: tenderness, meningismus Respiratory exam: Present: normal lung sounds bilaterally. Absent: respiratory distress, wheezes Cardiovascular Exam: Present: regular rate, normal rhythm GI/Abdominal exam: Absent: distended Extremities exam: Present: normal inspection, normal capillary refill Neurological exam: Present: alert, oriented X3, CN II-XII intact, normal gait. Absent: motor sensory deficit Psychiatric exam: Present: normal affect, normal mood Skin exam: Present: warm, dry, intact. Absent: cyanosis, diaphoretic Course Vital Signs 10/23/21 13:59 Temperature 98.6 F Pulse Rate 87 Respiratory 16 Rate Blood Pressure 127/73 O2 Sat by Pulse 96 Oximetry Medical Decision Making - Medical Decision Making 21-year-old female presenting with request for coronavirus testing. She does test positive in the emergency department. She has no symptoms. She is otherwise healthy. She should take vitamin C, vitamin D, zinc. She should return with worsening or changing symptoms. She should quarantined for 10 days and follow with her primary care physician. - Lab Data Lab Results 10/23/21 Range/Units 14:35 Coronavirus (PCR) Detected A (Not Detectd) Disposition Clinical Impression: COVID-19 Disposition: HOME SELF-CARE Condition: Good Instructions (If sedation given, give patient instructions): COVID-19 (Coronavirus Disease 2019) (ED) Is patient prescribed a controlled substance at d/c from ED?: No Referrals: None,Stated [Primary Care Provider] - 1-2 days Joao Rangel MD [REFERRING] - 1-2 days Time of Disposition: 15:09
== END 2021-10-23 15:30 | disposition home or self-care (01) ==
LOC: EC 13:55
DX: U07.1 COVID-19 (principal)
CPT/HCPCS: 87635; 99283

== ENCOUNTER 2021-11-23 07:56 | Emergency (ER) | payer OTHER ==
[2021-11-23] MEDS ORDERED: KETOROLAC 15 MG/ML 1 ML VIAL IVP STA (08:10)
[2021-11-23] MEDS ORDERED: SODIUM CHLORIDE 0.9% 500 ML 500 ML IV STA (08:10)
[2021-11-23] MEDS ORDERED: SODIUM CHLORIDE 0.9% 1,000 ML IV STA (08:10)
--- NOTE | 2021-11-23 08:13 | ED ---
General Adult HPI - General Stated complaint: abd pain Time Seen by Provider: 11/23/21 07:58 Source: patient, EMS, RN notes reviewed Mode of arrival: EMS Limitations: no limitations - History of Present Illness Initial comments: 21-year-old female presents emergency Department chief complaint of left flank pain. Patient states started on Sunday and sudden onset. Patient states pain has been constant radiates from her left lower abdomen to her back. She states that nothing makes it feel better or worse. Patient does admit to nausea vomiting she was given Zofran by EMS. Patient states she's never had any panic this in the past. Patient does admit she said prior section no dysuria no hematuria no diarrhea no constipation - Related Data Previous Rx's Medication Instructions Recorded Ibuprofen [Motrin] 600 mg PO Q6H #30 tab 04/25/21 oxyCODONE HCL [OxyIR] 5 mg PO Q4HR PRN #18 tab 04/25/21 Ibuprofen [Motrin] 600 mg PO Q8HR PRN #20 tab 11/23/21 Allergies Allergy/AdvReac Type Severity Reaction Status Date / Time No Known Allergies Allergy Verified 11/23/21 08:22 Review of Systems ROS Statement: Those systems with pertinent positive or pertinent negative responses have been documented in the HPI. ROS Other: All systems not noted in ROS Statement are negative. Past Medical History Past Medical History: No Reported History History of Any Multi-Drug Resistant Organisms: None Reported Past Surgical History: Adenoidectomy, Tonsillectomy Past Anesthesia/Blood Transfusion Reactions: No Reported Reaction Past Psychological History: No Psychological Hx Reported, Anxiety Smoking Status: Never smoker Past Alcohol Use History: None Reported Past Drug Use History: None Reported - Past Family History Mother Family Medical History: No Reported History General Exam Limitations: no limitations General appearance: alert, in no apparent distress Head exam: Present: atraumatic, normocephalic, normal inspection Eye exam: Present: normal appearance, PERRL, EOMI. Absent: scleral icterus, conjunctival injection, periorbital swelling ENT exam: Present: normal exam, mucous membranes moist Neck exam: Present: normal inspection, full ROM. Absent: tenderness, meningismu s, lymphadenopathy Respiratory exam: Present: normal lung sounds bilaterally. Absent: respiratory distress, wheezes, rales, rhonchi, stridor Cardiovascular Exam: Present: regular rate, normal rhythm, normal heart sounds. Absent: systolic murmur, diastolic murmur, rubs, gallop, clicks GI/Abdominal exam: Present: soft, tenderness (Minimal left), normal bowel sounds. Absent: distended, guarding, rebound, rigid Back exam: Absent: CVA tenderness (R), CVA tenderness (L) Neurological exam: Present: alert Skin exam: Present: warm, dry, intact, normal color. Absent: rash Course Vital Signs 11/23/21 08:13 Temperature 97.8 F Pulse Rate 64 Respiratory 18 Rate Blood Pressure 119/63 O2 Sat by Pulse 99 Oximetry Medical Decision Making - Medical Decision Making 21-year-old presented for left lower quadrant pain. Patient has evidence of ovarian cyst. Patient's lab work otherwise unremarkable patient be discharged discharged return parameters discussed. - Lab Data Result diagrams: 11/23/21 09:14 11/23/21 10:46 Lab Results 11/23/21 11/23/21 11/23/21 Range/Units 09:14 09:14 09:14 WBC 5.4 (4.0-11.0) k/uL RBC 4.49 (3.80-5.40) m/uL Hgb 10.9 L (11.4-16.0) gm/dL Hct 35.0 (34.0-46.0) % MCV 78.1 L (80.0-100.0) fL MCH 24.3 L (25.0-35.0) pg MCHC 31.1 (31.0-37.0) g/dL RDW 15.8 H (11.5-15.5) % Plt Count 217 (150-450) k/uL MPV 10.6 Neutrophils % 51 % Lymphocytes % 39 % Monocytes % 6 % Eosinophils % 2 % Basophils % 1 % Neutrophils # 2.7 (1.3-7.7) k/uL Lymphocytes # 2.1 (1.0-4.8) k/uL Monocytes # 0.3 (0-1.0) k/uL Eosinophils # 0.1 (0-0.7) k/uL Basophils # 0.0 (0-0.2) k/uL Hypochromasia Moderate Microcytosis Slight Sodium (137-145) mmol/L Potassium (3.5-5.1) mmol/L Chloride (98-107) mmol/L Carbon Dioxide (22-30) mmol/L Anion Gap mmol/L BUN (7-17) mg/dL Creatinine (0.52-1.04) mg/dL Est GFR (CKD-EPI)AfAm (>60 ml/min/1.73 sqM) Est GFR (CKD-EPI)NonAf (>60 ml/min/1.73 sqM) Glucose (74-99) mg/dL Calcium (8.4-10.2) mg/dL Total Bilirubin (0.2-1.3) mg/dL AST (14-36) U/L ALT (4-34) U/L Alkaline Phosphatase (38-126) U/L Total Protein (6.3-8.2) g/dL Albumin (3.5-5.0) g/dL Amylase (30-110) U/L Lipase (23-300) U/L Urine Color Yellow Urine Appearance Clear (Clear) Urine pH 5.5 (5.0-8.0) Ur Specific [place] 1.025 (1.001-1.035) Urine Protein Negative (Negative) Urine Glucose (UA) Negative (Negative) Urine Ketones Negative (Negative) Urine Blood Negative (Negative) Urine Nitrite Negative (Negative) Urine Bilirubin Negative (Negative) Urine Urobilinogen <2.0 (<2.0) mg/dL Ur Leukocyte Esterase Negative (Negative) Urine HCG, Qual Not Detected (Not Detectd) 11/23/21 11/23/21 Range/Units 09:14 10:46 WBC (4.0-11.0) k/uL RBC (3.80-5.40) m/uL Hgb (11.4-16.0) gm/dL Hct (34.0-46.0) % MCV (80.0-100.0) fL MCH (25.0-35.0) pg MCHC (31.0-37.0) g/dL RDW (11.5-15.5) % Plt Count (150-450) k/uL MPV Neutrophils % % Lymphocytes % % Monocytes % % Eosinophils % % Basophils % % Neutrophils # (1.3-7.7) k/uL Lymphocytes # (1.0-4.8) k/uL Monocytes # (0-1.0) k/uL Eosinophils # (0-0.7) k/uL Basophils # (0-0.2) k/uL Hypochromasia Microcytosis Sodium 141 138 (137-145) mmol/L Potassium 2.7 L* 3.8 (3.5-5.1) mmol/L Chloride 122 H 106 (98-107) mmol/L Carbon Dioxide 15 L 25 (22-30) mmol/L Anion Gap 4 7 mmol/L BUN 9 12 (7-17) mg/dL Creatinine 0.32 L 0.51 L (0.52-1.04) mg/dL Est GFR (CKD-EPI)AfAm >90 >90 (>60 ml/min/1.73 sqM) Est GFR (CKD-EPI)NonAf >90 >90 (>60 ml/min/1.73 sqM) Glucose 68 L 88 (74-99) mg/dL Calcium 5.5 L* 9.0 (8.4-10.2) mg/dL Total Bilirubin 0.2 (0.2-1.3) mg/dL AST 19 (14-36) U/L ALT 13 (4-34) U/L Alkaline Phosphatase 42 (38-126) U/L Total Protein 4.7 L (6.3-8.2) g/dL Albumin 2.4 L (3.5-5.0) g/dL Amylase 40 (30-110) U/L Lipase 41 (23-300) U/L Urine Color Urine Appearance (Clear) Urine pH (5.0-8.0) Ur Specific [place] (1.001-1.035) Urine Protein (Negative) Urine Glucose (UA) (Negative) Urine Ketones (Negative) Urine Blood (Negative) Urine Nitrite (Negative) Urine Bilirubin (Negative) Urine Urobilinogen (<2.0) mg/dL Ur Leukocyte Esterase (Negative) Urine HCG, Qual (Not Detectd) Disposition Clinical Impression: Ovarian cyst Disposition: HOME SELF-CARE Condition: Stable Instructions (If sedation given, give patient instructions): Ovarian Cyst (ED) Additional Instructions: Please return to the Emergency Department if symptoms worsen or any other concerns. Prescriptions: Ibuprofen [Motrin] 600 mg PO Q8HR PRN #20 tab PRN Reason: Pain Is patient prescribed a controlled substance at d/c from ED?: No Referrals: None,Stated [Primary Care Provider] - 1-2 days Time of Disposition: 11:19
[2021-11-23 08:21] VITALS: TEMP 97.8
--- NOTE | 2021-11-23 09:02 | CT ---
EXAMINATION TYPE: CT abdomen pelvis wo con DATE OF EXAM: 11/23/2021 COMPARISON: None INDICATION: left flank pain DLP: 396.6 mGycm, Automated exposure control for dose reduction was used. CONTRAST: 0 mL of Isovue 300. Study performed without Oral Contrast TECHNIQUE: Axial images were obtained from above the diaphragm to the pubic rami in the axial plane a t 5 mm thick sections. Reconstructed images are reviewed on the computer in the coronal plane. FINDINGS: Limited CT sections are obtained the lung bases. The lung bases are clear. CT ABDOMEN: Liver: Normal Spleen: Normal Pancreas: Normal Adrenal glands: The adrenal glands are normal. Gallbladder: Normal Kidneys: No masses are evident. No hydronephrosis is present. No cysts are present. No renal stone s are evident. No ureteral stones are evident. Aorta: Normal Inferior vena cava: Normal. CT PELVIS: Loops of bowel within the abdomen and pelvis are normal. No suspicious diverticulosis or diverticuli tis. This study is lateral contrast limiting bowel evaluation. Appendix: Normal as visualized. Urinary bladder: Normal. Genitourinary structures: Uterus appears normal. A 1.1 cm left ovarian cyst is likely present. No naty e fluid is evident. Osseous structures: No suspicious lytic or sclerotic lesions. IMPRESSIONS: 1. 1.1 cm left ovarian cyst. 2. No suspicious etiology for left flank pain otherwise evident. Follow-up can be performed as clinic ally indicated.
[2021-11-23 09:29] LABS: Basophils % (A) 1 %; Eosinophils # (A) 0.1 k/uL (0-0.7); Eosinophils % (A) 2 %; HGB 10.9 gm/dL (11.4-16.0); Hypochromasia Moderate; Lymphocytes # (A) 2.1 k/uL (1.0-4.8); Lymphocytes % (A) 39 %; MCH 24.3 pg (25.0-35.0); MCHC 31.1 g/dL (31.0-37.0); MCV 78.1 fL (80.0-100.0); Mean Platelet Volume 10.6; Microcytosis Slight; Monocytes # (A) 0.3 k/uL (0-1.0); Monocytes % (A) 6 %; Neutrophils # (A) 2.7 k/uL (1.3-7.7); Neutrophils % (A) 51 %; Platelet Count 217 k/uL (150-450); RBC 4.49 m/uL (3.80-5.40); RDW 15.8 % (11.5-15.5); WBC 5.4 k/uL (4.0-11.0)
[2021-11-23 09:34] LABS: Appearance,Urine Clear (Clear); Bilirubin,Urine Negative (Negative); Blood,Urine Negative (Negative); Color,Urine Yellow; Glucose,Urine (UA) Negative (Negative); Ketones,Urine Negative (Negative); Leukocyte Esterase,Urine Negative (Negative); Nitrite,Urine Negative (Negative); PH, Urine 5.5 (5.0-8.0); Protein,Urine Negative (Negative); Specific Gravity,Urine 1.025 (1.001-1.035); Urobilinogen,Urine <2.0 mg/dL (<2.0)
[2021-11-23 09:43] LABS: ALT 13 U/L (4-34); AST 19 U/L (14-36); African American GFR (CKD) >90 (>60 ml/min/1.73 sqM); Albumin 2.4 g/dL (3.5-5.0); Alkaline Phosphatase 42 U/L (38-126); Amylase 40 U/L (30-110); Anion Gap 4 mmol/L; Blood Urea Nitrogen 9 mg/dL (7-17); Carbon Dioxide 15 mmol/L (22-30); Chloride 122 mmol/L (98-107); Glucose 68 mg/dL (74-99); Lipase 41 U/L (23-300); Non-African American GFR(CKD) >90 (>60 ml/min/1.73 sqM); Sodium 141 mmol/L (137-145); Total Bilirubin 0.2 mg/dL (0.2-1.3); Total Protein 4.7 g/dL (6.3-8.2)
[2021-11-23 10:01] LABS: Calcium 5.5 mg/dL (8.4-10.2); Potassium 2.7 mmol/L (3.5-5.1)
--- NOTE | 2021-11-23 10:38 | US ---
EXAMINATION TYPE: US pelvic complete DATE OF EXAM: 11/23/2021 COMPARISON: CT same day CLINICAL HISTORY: 21-year-old female Left lower quadrant pain, ovarian cyst,. LLQ pain. Hx ovarian cy st. Hx 2 C sections. . TECHNIQUE: T Transabdominal sonographic images of the pelvis were acquired. Transvaginal exam not p erformed, patient refused TV. Date of LMP: Unknown FINDINGS: EXAM MEASUREMENTS: Uterus: 7.8 x 4.8 x 3.7 cm Endometrial Stripe: Not well defined Right Ovary: 3.3 x 2.5 x 1.6 cm for volume of 7.0 mL Left Ovary: 4.0 x 2.2 x 2.0 cm for a volume of 8.8 mL 1. Uterus: Anteverted 2. Endometrium: Unable to clearly delineate. 3. Right Ovary: Appears wnl 4. Left Ovary: There is follicular change. Dominant follicle measuring 1.1 cm. Spectral, color and waveform doppler imaging shows arterial and venous flow within the ovaries. 5. Bilateral Adnexa: Appear wnl 6. Posterior cul-de-sac: Appears wnl IMPRESSION: 1. Endometrial stripe not well delineated on transabdominal scanning. 2. Normal size ovaries. Normal follicular change left ovary with a 1.1 cm dominant follicle/functiona l cyst. 3. No sonographic evidence for ovarian torsion.
[2021-11-23 11:12] LABS: African American GFR (CKD) >90 (>60 ml/min/1.73 sqM); Anion Gap 7 mmol/L; Blood Urea Nitrogen 12 mg/dL (7-17); Carbon Dioxide 25 mmol/L (22-30); Chloride 106 mmol/L (98-107); Glucose 88 mg/dL (74-99); Non-African American GFR(CKD) >90 (>60 ml/min/1.73 sqM); Potassium 3.8 mmol/L (3.5-5.1); Sodium 138 mmol/L (137-145)
[2021-11-23 11:26] VITALS: BP 122/74; PULSE 78; RESP 16
== END 2021-11-23 11:26 | disposition home or self-care (01) ==
LOC: EC 07:56
DX: N83.202 Unspecified ovarian cyst, left side (principal)
CPT/HCPCS: 36415; 80053; 80048; 82150; 83690; 85025; 81003; 81025; 93975; 76856; 74176; 99284; 96374; 96361 ×3; J1885

== ENCOUNTER 2023-03-17 15:21 | Emergency (ER) | payer OTHER ==
[2023-03-17 16:40] VITALS: BP 124/85; PULSE 89; RESP 18; TEMP 98.2
--- NOTE | 2023-03-17 16:40 | ED ---
Back Pain HPI - General Chief Complaint: Back Pain/Injury Stated Complaint: neck pain Source: patient Limitations: no limitations - History of Present Illness Initial Comments: 23-year-old female presenting to the ED with chief pain. Patient states for the past month she has had pain in her neck and upper back. Pain is sharp in nature. Denies fever or chills. No incontinence saddle anesthesia. Denies weakness or confusion. No chest pain or shortness of breath. No other complaints. - Related Data Previous Rx's Medication Instructions Recorded Ibuprofen [Motrin] 600 mg PO Q6H #30 tab 04/25/21 oxyCODONE HCL [OxyIR] 5 mg PO Q4HR PRN #18 tab 04/25/21 Ibuprofen [Motrin] 600 mg PO Q8HR PRN #20 tab 11/23/21 Allergies Allergy/AdvReac Type Severity Reaction Status Date / Time No Known Allergies Allergy Verified 03/17/23 16:33 Review of Systems ROS Statement: Those systems with pertinent positive or pertinent negative responses have been documented in the HPI. ROS Other: All systems not noted in ROS Statement are negative. Past Medical History Past Medical History: No Reported History History of Any Multi-Drug Resistant Organisms: None Reported Past Surgical History: Adenoidectomy, Section, Tonsillectomy Past Anesthesia/Blood Transfusion Reactions: No Reported Reaction Past Psychological History: No Psychological Hx Reported, Anxiety Smoking Status: Never smoker Past Alcohol Use History: None Reported Past Drug Use History: None Reported - Past Family History Mother Family Medical History: No Reported History General Exam Limitations: no limitations General appearance: alert, in no apparent distress Neck exam: Present: normal inspection, full ROM, other (No meningismus.) Cardiovascular Exam: Present: regular rate, normal rhythm GI/Abdominal exam: Present: soft Extremities exam: Present: normal inspection, other (Ambulates without difficulty.) Back exam: Present: normal inspection, other (Strength and sensation equal and intact in bilateral upper and lower extremities.) Neurological exam: Present: alert, oriented X3 Course Vital Signs 03/17/23 16:29 Temperature 98.2 F Pulse Rate 89 Respiratory 18 Rate Blood Pressure 124/85 O2 Sat by Pulse 99 Oximetry Medical Decision Making - Medical Decision Making Was pt. sent in by a medical professional or institution (, PA, DIRECTOR OF AGRICULTURE, urgent care, hospital, or jail...) When possible be specific @ -No Did you speak to anyone other than the patient for history (EMS, parent, family, police, friend...)? What history was obtained from this source @ -No Did you review nursing and triage notes (agree or disagree)? Why? @ -I reviewed and agree with nursing and triage notes Were old charts reviewed (outside hosp., previous admission, EMS record, old EKG, old radiological studies, urgent care reports/EKG's, jail records)? Report findings @ -No old charts were reviewed Differential Diagnosis (chest pain, altered mental status, abdominal pain women, abdominal pain men, vaginal bleeding, weakness, fever, dyspnea, syncope, headache, dizziness, GI bleed, back pain, seizure, CVA, palpatations, mental health, musculoskeletal)? @ -Differential Musculoskeletal Muscular strain, contusion, ligament sprain, fracture, arthritis, septic arthritis, bursitis, cellulitis, muscle spasm, nerve compression, DVT, arterial occlusion, herpes zoster, electrolyte abnormality, tumor.... This is not meant to be in all inclusive list EKG interpreted by me (3pts min.). @ -None X-rays interpreted by me (1pt min.). @ -X-ray of the cervical spine and thoracic spine interpreted by me showing signs of fracture or other acute finding. CT interpreted by me (1pt min.). @ -None done U/S interpreted by me (1pt. min.). @ -None done What testing was considered but not performed or refused? (CT, X-rays, U/S, labs)? Why? @ -None What meds were considered but not given or refused? Why? @ -None Did you discuss the management of the patient with other professionals (professionals i.e. , PA, DIRECTOR OF AGRICULTURE, lab, RT, psych nurse, social service worker, loan processing supervisor, teacher, chairman president and chief executive officer, test case developer)? Give summary @ -No Was smoking cessation discussed for >3mins.? @ -No Was critical care preformed (if so, how long)? @ -No Were there social determinants of health that impacted care today? How? (Homelessness, low income, unemployed, alcoholism, drug addiction, transportation, low edu. Level, literacy, decrease access to med. care, correction, rehab)? @ -No Was there de-escalation of care discussed even if they declined (Discuss DNR or withdrawal of care, Hospice)? DNR status @ -No What co-morbidities impacted this encounter? (DM, HTN, Smoking, COPD, CAD, Cancer, CVA, ARF, Chemo, Hep., AIDS, mental health diagnosis, sleep apnea, morbid obesity)? @ -None Was patient admitted / discharged? Hospital course, mention meds given and route, prescriptions, significant lab abnormalities, going to OR and other pertinent info. @ -Discharge 23-year-old female sent to the ED with a chief complaint of neck pain. Exam shows no meningismus. Vital signs stable and afebrile. Imaging shows no acute findings. Symptoms likely muscular skeletal in nature. Discharged home in stable condition and advised to follow up with PCP. Discussed return precautions with patient verbalizes agreement. Undiagnosed new problem with uncertain prognosis? @ -No Drug Therapy requiring intensive monitoring for toxicity (Heparin, Nitro, Insulin, Cardizem)? @ -No Were any procedures done? @ -No Diagnosis/symptom? @ -Neck pain Acute, or Chronic, or Acute on Chronic? @ -Acute Uncomplicated (without systemic symptoms) or Complicated (systemic symptoms)? @ -Uncomplicated Side effects of treatment? @ -No Exacerbation, Progression, or Severe Exacerbation? @ -No Poses a threat to life or bodily function? How? (Chest pain, USA, [place], pneumonia, PE, COPD, DKA, ARF, appy, cholecystitis, CVA, Diverticulitis, Homicidal, Suicidal, threat to staff... and all critical care pts) @ -No Disposition Clinical Impression: Neck pain Disposition: HOME SELF-CARE Condition: Good Instructions (If sedation given, give patient instructions): Cervical Strain (ED), Cervical Sprain (ED), Neck Pain (ED) Additional Instructions: Please return to the Emergency Department if symptoms worsen or any other concerns. Follow up with your primary care provider. Is patient prescribed a controlled substance at d/c from ED?: No Referrals: None,Stated [Primary Care Provider] - 1-2 days Time of Disposition: 18:21
--- NOTE | 2023-03-17 17:13 | XR ---
Cervical spine HISTORY: Pain without trauma. COMPARISON: None TECHNIQUE: 6 views of the cervical spine were obtained. FINDINGS: The craniovertebral junction relationships and prevertebral soft tissues are normal. The cervical vertebral segments are normal in height and alignment and there is no fracture or sublux ation. The disc spaces are well-maintained in height and there is no significant degenerative disc disease. The facet joints and uncovertebral joints are intact. There is no bony neural foraminal encroachment. IMPRESSION: No significant abnormality seen.
--- NOTE | 2023-03-17 17:15 | XR ---
Thoracic spine HISTORY: Back pain COMPARISON: None TECHNIQUE: 3 views of the thoracic spine were obtained. FINDINGS: The thoracic vertebral segments are normal in height and alignment and there is no fracture subluxati on The disc spaces are well-maintained in height and there is no degenerative disc disease. The paraspinal soft tissues are normal. IMPRESSION: No significant abnormality seen.
== END 2023-03-17 18:28 | disposition home or self-care (01) ==
LOC: EC 15:21
DX: M54.2 Cervicalgia (principal); M54.6 Pain in thoracic spine
CPT/HCPCS: 72050; 72070; 99283

== ENCOUNTER 2024-04-18 21:42 | Emergency (ER) | payer OTHER ==
[2024-04-18 22:17] VITALS: TEMP 98.6
--- NOTE | 2024-04-18 22:51 | ED ---
General Adult HPI - General Source: patient Mode of arrival: ambulatory Limitations: no limitations <Tori Mayo - Last Filed: 04/18/24 22:50> <Taqueria Winston - Last Filed: 04/23/24 09:17> - General Chief complaint: Nausea/Vomiting/Diarrhea Stated complaint: nausea Time Seen by Provider: 04/18/24 22:50 - History of Present Illness Initial comments: 24-year-old female presenting with chief complaint of nausea and fatigue ongoing for 1 week. Patient is concerned she may be . (Tori Mayo) - Related Data Previous Rx's Medication Instructions Recorded Ibuprofen [Motrin] 600 mg PO Q6H #30 tab 04/25/21 oxyCODONE HCL [OxyIR] 5 mg PO Q4HR PRN #18 tab 04/25/21 Ibuprofen [Motrin] 600 mg PO Q8HR PRN #20 tab 11/23/21 Ondansetron Odt [Zofran ODT] 4 mg PO Q8HR PRN #10 tab 04/19/24 Allergies Allergy/AdvReac Type Severity Reaction Status Date / Time No Known Allergies Allergy Verified 04/18/24 22:11 Review of Systems ROS Other: All systems not noted in ROS Statement are negative. <Tori Mayo - Last Filed: 04/18/24 22:50> ROS Other: All systems not noted in ROS Statement are negative. <Taqueria Winston - Last Filed: 04/23/24 09:17> ROS Statement: Those systems with pertinent positive or pertinent negative responses have been documented in the HPI. Past Medical History Past Medical History: No Reported History History of Any Multi-Drug Resistant Organisms: None Reported Past Surgical History: Adenoidectomy, Section, Tonsillectomy Past Anesthesia/Blood Transfusion Reactions: No Reported Reaction Past Psychological History: No Psychological Hx Reported, Anxiety Smoking Status: Never smoker Past Alcohol Use History: None Reported Past Drug Use History: None Reported - Past Family History Mother Family Medical History: No Reported History <Tori Mayo - Last Filed: 04/18/24 22:50> General Exam Limitations: no limitations <Tori Mayo - Last Filed: 04/18/24 22:50> Limitations: no limitations General appearance: alert, in no apparent distress Head exam: Present: atraumatic, normocephalic Eye exam: Present: normal appearance. Absent: scleral icterus, conjunctival injection ENT exam: Present: normal oropharynx Neck exam: Present: normal inspection Respiratory exam: Present: normal lung sounds bilaterally. Absent: respiratory distress, wheezes, rales, rhonchi, stridor, accessory muscle use Cardiovascular Exam: Present: regular rate, normal rhythm, normal heart sounds GI/Abdominal exam: Present: soft, distended. Absent: tenderness, guarding, rebound, rigid, mass, pulsatile mass, hernia Extremities exam: Present: normal inspection, normal capillary refill. Absent: pedal edema, calf tenderness Back exam: Present: normal inspection. Absent: CVA tenderness (R), CVA tenderness (L) Neurological exam: Present: alert Skin exam: Present: warm, dry, intact, normal color. Absent: rash <Taqueria Winston - Last Filed: 04/23/24 09:17> - General Exam Comments Initial Comments: Visual Physical Exam Vital signs reviewed General: Well-appearing, nontoxic, no acute distress. Head: Normocephalic, atraumatic Eyes: PERRLA, EOMI ENT: Airway patent Chest: Nonlabored breathing Skin: No visual rash, normal skin tone Neuro: Alert and oriented 3 Musculoskeletal: No gross abnormalities (Tori Mayo) Course Vital Signs 04/18/24 04/19/24 22:12 01:56 Temperature 98.6 F Pulse Rate 95 90 Respiratory 16 18 Rate Blood Pressure 124/82 118/70 O2 Sat by Pulse 96 100 Oximetry Medical Decision Making <Tori Mayo - Last Filed: 04/18/24 22:50> - Lab Data Result diagrams: 04/18/24 23:27 04/18/24 23:27 <Taqueria Winston - Last Filed: 04/23/24 09:17> - Medical Decision Making I performed the quick note portion of this visit, electronically signed Tori Mayo PA-C (Tori Mayo) Was pt. sent in by a medical professional or institution ([facility], TIRE DEBEADER, urgent care, hospital, or prison...) When possible be specific @ -[No] Did you speak to anyone other than the patient for history (EMS, parent, family, police, friend...)? What history was obtained from this source @ -[No] Did you review nursing and triage notes (agree or disagree)? Why? @ -[I reviewed and agree with nursing and triage notes] Were old charts reviewed (outside hosp., previous admission, EMS record, old EKG, old radiological studies, urgent care reports/EKG's, prison records)? Report findings @ -[No old charts were reviewed] Differential Diagnosis (chest pain, altered mental status, abdominal pain women, abdominal pain men, vaginal bleeding, weakness, fever, dyspnea, syncope, headache, dizziness, GI bleed, back pain, seizure, CVA, palpatations, mental health, musculoskeletal)? @ -[Differential nausea: Appendicitis, Cholecystitis, diverticulosis, ischemic bowel, pancreatitis, hepatitis, UTI, gastroenteritis, AAA, incarcerated hernia, bowel obstruction, constipation, inflammatory bowel, hepatitis, peptic ulcer disease, splenic in farction, perforated viscus, vulvitis, ovarian torsion, PID, kidney stone, placenta abruption, this is not meant to be an all-inclusive list EKG interpreted by me (3pts min.). @ -[As above] X-rays interpreted by me (1pt min.). @ -[None done] CT interpreted by me (1pt min.). @ -[None done] U/S interpreted by me (1pt. min.). @ -[None done] What testing was considered but not performed or refused? (CT, X-rays, U/S, labs)? Why? @ -[None] What meds were considered but not given or refused? Why? @ -[None] Did you discuss the management of the patient with other professionals (professionals i.e. , PA, TIRE DEBEADER, lab, RT, psych nurse, adoption social worker, fire production operator, teacher, civil preparedness training officer, briefcase sewer)? Give summary @ -[No] Was smoking cessation discussed for >3mins.? @ -[No] Was critical care preformed (if so, how long)? @ -[No] Were there social determinants of health that impacted care today? How? (Homelessness, low income, unemployed, alcoholism, drug addiction, transportation, low edu. Level, literacy, decrease access to med. care, senior living, rehab)? @ -[No] Was there de-escalation of care discussed even if they declined (Discuss DNR or withdrawal of care, Hospice)? DNR status @ -[No] What co-morbidities impacted this encounter? (DM, HTN, Smoking, COPD, CAD, Cancer, CVA, ARF, Chemo, Hep., AIDS, mental health diagnosis, sleep apnea, morbid obesity)? @ -[None] Was patient admitted / discharged? Hospital course, mention meds given and route, prescriptions, significant lab abnormalities, going to OR and other pertinent info. @ -[Patient is a 24-year-old woman here to have evaluation for nausea. She states the last time she felt like this she was . She also took home test that had a very faint signal. The patient's workup here unremarkable. Her test here is negative. She is feeling better. We discussed appropriate follow-up and return parameters. Undiagnosed new problem with uncertain prognosis? @ -[No] Drug Therapy requiring intensive monitoring for toxicity (Heparin, Nitro, Insulin, Cardizem)? @ -[No] Were any procedures done? @ -[No] Diagnosis/symptom? @ -[Acute nausea Acute, or Chronic, or Acute on Chronic? @ -[Acute Uncomplicated (without systemic symptoms) or Complicated (systemic symptoms)? @ -[Uncomplicated Side effects of treatment? @ -[No] Exacerbation, Progression, or Severe Exacerbation? @ -[No] Poses a threat to life or bodily function? How? (Chest pain, USA, [place], pneumonia, PE, COPD, DKA, ARF, appy, cholecystitis, CVA, Diverticulitis, Homicidal, Suicidal, threat to staff... and all critical care pts) @ -[No] All treatments are based on ideal body weight as in ED triage (Taqueria Winston) - Lab Data Lab Results 04/18/24 04/18/24 04/18/24 Range/Units 22:45 23:27 23:27 WBC 9.0 (3.8-10.6) k/uL RBC 5.42 H (3.80-5.40) m/uL Hgb 14.0 (11.4-16.0) gm/dL Hct 43.8 (34.0-46.0) % MCV 80.8 (80.0-100.0) fL MCH 25.8 (25.0-35.0) pg MCHC 31.9 (31.0-37.0) g/dL RDW 12.7 (11.5-15.5) % Plt Count 288 (150-450) k/uL MPV 8.8 Neutrophils % 62 % Lymphocytes % 29 % Monocytes % 6 % Eosinophils % 1 % Basophils % 1 % Neutrophils # 5.6 (1.3-7.7) k/uL Lymphocytes # 2.6 (1.0-4.8) k/uL Monocytes # 0.5 (0-1.0) k/uL Eosinophils # 0.1 (0-0.7) k/uL Basophils # 0.0 (0-0.2) k/uL Sodium 137 (137-145) mmol/L Potassium 3.7 (3.5-5.1) mmol/L Chloride 104 (98-107) mmol/L Carbon Dioxide 27 (22-30) mmol/L Anion Gap 6 mmol/L BUN 18 H (7-17) mg/dL Creatinine 0.71 (0.52-1.04) mg/dL Est GFR (CKD-EPI)AfAm >90 (>60 ml/min/1.73 sqM) Est GFR (CKD-EPI)NonAf >90 (>60 ml/min/1.73 sqM) Glucose 91 (74-99) mg/dL Calcium 9.7 (8.4-10.2) mg/dL Total Bilirubin 0.5 (0.2-1.3) mg/dL AST 21 (14-36) U/L ALT 19 (4-34) U/L Alkaline Phosphatase 53 (38-126) U/L Total Protein 7.4 (6.3-8.2) g/dL Albumin 4.8 (3.5-5.0) g/dL HCG, Quant <2.4 mIU/mL Urine Color Yellow Urine Appearance Cloudy H (Clear) Urine pH 5.5 (5.0-8.0) Ur Specific [place] 1.033 (1.001-1.035) Urine Protein Trace H (Negative) Urine Glucose (UA) Negative (Negative) Urine Ketones Negative (Negative) Urine Blood Negative (Negative) Urine Nitrite Negative (Negative) Urine Bilirubin Negative (Negative) Urine Urobilinogen 2.0 (<2.0) mg/dL Ur Leukocyte Esterase Negative (Negative) Urine RBC <1 (0-5) /hpf Ur Squamous Epith Cells 2 (0-4) /hpf Urine Bacteria Rare H (None) /hpf Urine Mucus Occasional H (None) /hpf Urine Yeast (Budding) Rare H (None) /hpf Disposition <Tori Mayo - Last Filed: 04/18/24 22:50> Is patient prescribed a controlled substance at d/c from ED?: No <Taqueria Winston - Last Filed: 04/23/24 09:17> Clinical Impression: Nausea Disposition: HOME SELF-CARE Condition: Good Instructions (If sedation given, give patient instructions): Acute Nausea and Vomiting (ED) Prescriptions: Ondansetron Odt [Zofran ODT] 4 mg PO Q8HR PRN #10 tab PRN Reason: Nausea Referrals: None,Stated [Primary Care Provider] - 1-2 days
[2024-04-18 23:28] LABS: Appearance,Urine Cloudy (Clear); Bacteria,Urine Rare /hpf; Bilirubin,Urine Negative (Negative); Blood,Urine Negative (Negative); Budding Yeast,Urine Rare /hpf; Color,Urine Yellow; Glucose,Urine (UA) Negative (Negative); Ketones,Urine Negative (Negative); Leukocyte Esterase,Urine Negative (Negative); Mucus,Urine Occasional /hpf; Nitrite,Urine Negative (Negative); PH, Urine 5.5 (5.0-8.0); Protein,Urine Trace (Negative); RBC,Urine <1 /hpf (0-5); Specific Gravity,Urine 1.033 (1.001-1.035); Squamous Epithelial Cell,Urine 2 /hpf (0-4)
[2024-04-18] MEDS: ONDANSETRON ODT 4 MG TAB PO STA (23:31)
[2024-04-18 23:41] LABS: Basophils % (A) 1 %; Eosinophils # (A) 0.1 k/uL (0-0.7); Eosinophils % (A) 1 %; HCT 43.8 % (34.0-46.0); Lymphocytes # (A) 2.6 k/uL (1.0-4.8); Lymphocytes % (A) 29 %; MCH 25.8 pg (25.0-35.0); MCHC 31.9 g/dL (31.0-37.0); MCV 80.8 fL (80.0-100.0); Mean Platelet Volume 8.8; Monocytes # (A) 0.5 k/uL (0-1.0); Monocytes % (A) 6 %; Neutrophils # (A) 5.6 k/uL (1.3-7.7); Neutrophils % (A) 62 %; Platelet Count 288 k/uL (150-450); RBC 5.42 m/uL (3.80-5.40); RDW 12.7 % (11.5-15.5)
[2024-04-19] LABS: ALT 19 U/L (4-34); AST 21 U/L (14-36); African American GFR (CKD) >90 (>60 ml/min/1.73 sqM); Albumin 4.8 g/dL (3.5-5.0); Alkaline Phosphatase 53 U/L (38-126); Anion Gap 6 mmol/L; Blood Urea Nitrogen 18 mg/dL (7-17); Calcium 9.7 mg/dL (8.4-10.2); Carbon Dioxide 27 mmol/L (22-30); Chloride 104 mmol/L (98-107); Glucose 91 mg/dL (74-99); Non-African American GFR(CKD) >90 (>60 ml/min/1.73 sqM); Potassium 3.7 mmol/L (3.5-5.1); Sodium 137 mmol/L (137-145); Total Bilirubin 0.5 mg/dL (0.2-1.3); Total Protein 7.4 g/dL (6.3-8.2)
[2024-04-19 00:16] LABS: HCG,Quantitative Serum <2.4 mIU/mL
[2024-04-19] MEDS: METOCLOPRAMIDE 5 MG/ML 2 ML VIAL IVP STA (01:24)
[2024-04-19] MEDS: SODIUM CHLORIDE 0.9% 1,000 ML IV ONE (01:25)
[2024-04-19 01:57] VITALS: BP 118/70; PULSE 90; RESP 18
== END 2024-04-19 02:01 | disposition home or self-care (01) ==
LOC: EC 21:42
DX: R11.2 Nausea with vomiting, unspecified (principal)
CPT/HCPCS: 36415; 80053; 85025; 81001; 84702; 99283; 96374; 96361; J2765